=== PATIENT | male | born 1960 | race Caucasian/White ===

== ENCOUNTER 2020-11-10 04:29 | Inpatient (IN) | payer BC ==
[~2020-11-10] VITALS: Ht 167.6 cm; Wt 95.3 kg
[2020-11-10 04:53] LABS: HEMOGLOBIN 16.8 gm/dl (14.0-17.5); RED BLOOD COUNT 5.76 M/UL (4.20-5.50); WHITE BLOOD COUNT 7.6 K/UL (4.5-11.0)
[2020-11-10 05:24] LABS: BUN/CREATININE RATIO 20 (0-10)
[2020-11-10] MEDS ORDERED: DAILY VALUE1 EACH PO (11:38)
[2020-11-10] MEDS ORDERED: SIMVASTATIN20 MG PO (11:38)
[2020-11-11 07:31] LABS: HEMOGLOBIN 15.4 gm/dl (14.0-17.5); RED BLOOD COUNT 5.37 M/UL (4.20-5.50); WHITE BLOOD COUNT 6.8 K/UL (4.5-11.0)
[2020-11-11 08:07] LABS: BUN/CREATININE RATIO 22 (0-10)
[2020-11-11] MEDS ORDERED: DECADRON6 MG PO (09:35)
== END 2020-11-11 14:24 | disposition home or self-care (01) | DRG 177 ==
LOC: ER1 04:29 → CDU 05:18 → MED SURG 4 21:40
PROVIDERS: Physician Assistant; ADMIT Internal Medicine
PROC: 8E0ZXY6 Isolation (ICD-10-PCS; principal; 2020-11-10)
PROC: XW033E5 Introduction of Remdesivir Anti-infective into Peripheral Vein, Percutaneous Approach, New Technology Group 5 (ICD-10-PCS; 2020-11-10)
PROC: 3E0333Z Introduction of Anti-inflammatory into Peripheral Vein, Percutaneous Approach (ICD-10-PCS; 2020-11-10)
DX: U07.1 COVID-19 (principal); J12.82 Pneumonia due to coronavirus disease 2019; J96.01 Acute respiratory failure with hypoxia; E78.5 Hyperlipidemia, unspecified; Z87.442 Personal history of urinary calculi; Z82.49 Family history of ischemic heart disease and other diseases of the circulatory system; Z79.899 Other long term (current) drug therapy
CPT/HCPCS: 36415; 36600; 71045; 80053; 81001; 82550; 82553; 82803; 83605; 83735; 83880; 84100; 84484; 85025; 85610; 85652; 85730; 86140; 87040; 87086; 93005; 99285; J0456; J0696; J1100; J1650; J7030